=== PATIENT | male | born 1970 | race Caucasian/White ===

== ENCOUNTER → 2017-12-06 | Outpatient (CLI) | payer OTHER ==
[~2017-12-06] MED LIST: Adult Low Dose81 MG PO; Amlodipine Besy10 MG PO; Augmentin 875-1 EACH PO; ERYT.5TO BOTHEYES; FAMO10; Floxin10 ML RIGHTEAR; HYDCHL12.5 PO; LOSARTAN POTAS100 MG PO; METO25 PO; Tenormin25 MG PO; Veetids 500500 MG PO
[2017-12-06 12:17] LABS: Creatinine, Urine Random 54.5 mg/dL (27.00-270.00)
[2017-12-06 12:20] LABS: Microalb/Creat Ratio UR, Rand 12.826 mg/g (0.000-30.000); Microalbumin, Random Urine 6.99 mg/L (0.000-20.000)
== END | disposition home or self-care (01) ==
LOC: LAB 11:19
PROVIDERS: Hospitalist
DX: I10 Essential (primary) hypertension (principal)
CPT/HCPCS: 82043; 82570

== ENCOUNTER 2018-08-22 08:04 | Day surgery (SDC) | payer OTHER ==
[~2018-08-22] VITALS: Ht 170.2 cm; Wt 94.5 kg
[~2018-08-22 08:04] MED LIST changes: -FAMO10
[2018-08-22] MEDS ORDERED: FAMO10 (08:25)
== END 2018-08-22 11:30 | disposition home or self-care (01) ==
LOC: ORSCSDS 08:04
PROVIDERS: Orthopaedic Surgery
PROC: 0SBC4ZZ Excision of Right Knee Joint, Percutaneous Endoscopic Approach (ICD-10-PCS; principal; 2018-08-22 09:15)
DX: S83.241A Other tear of medial meniscus, current injury, right knee, initial encounter (principal); M94.261 Chondromalacia, right knee; E66.9 Obesity, unspecified; Z68.31 Body mass index [BMI] 31.0-31.9, adult; K21.9 Gastro-esophageal reflux disease without esophagitis; I10 Essential (primary) hypertension; I49.9 Cardiac arrhythmia, unspecified; Z79.82 Long term (current) use of aspirin; Z79.899 Other long term (current) drug therapy
CPT/HCPCS: J0690; J1100; J2250; J2405; J3010; J7120